=== PATIENT | female | born 1955 | race Caucasian/White ===

== ENCOUNTER 2016-08-29 11:33 | Day surgery (SDC) | payer BC ==
[~2016-08-29 11:33] MED LIST: Bupivacaine 0.5% SDV PF* 30 ML VIAL ONE
[2016-08-29 14:33] VITALS: BP 123/87
--- NOTE | 2016-08-30 04:08 | OP ---
DATE OF OPERATION: 08/29/16 - [facility] DATE OF : 55 SURGEON: Jasvir Ventura MD. NETWORKING SPECIALIST: MICK Arreola. ANESTHESIOLOGIST: None. ANESTHESIA: Local only with digital block via 0.5% Marcaine. PRE-OP DIAGNOSIS: Left small finger mucous cyst. POST-OP DIAGNOSIS: Left small finger mucous cyst. OPERATIVE PROCEDURE: Excision of left small finger mucous cyst and debridement of joint capsule and dorsal osteophytes. INDICATIONS: Lisseth is a 61-year-old woman who has had quite a large mucous cyst on the dorsum of the left small finger over the dorsal ulnar aspect. There is a little bit of grooving in the nail. It has really gotten bigger and she came into the office and wanted it excised. We talked about risks and benefits. She wanted to proceed. ESTIMATED BLOOD LOSS: 5 mL. COMPLICATIONS: None. FINDINGS: As expected. DESCRIPTION OF PROCEDURE: Lisseth was seen in the preoperative holding area and correct side, site, and procedure were identified. We had a time-out and then I anesthetized the finger with 0.5% Marcaine via a digital block. Short time later, we came back to the operating room. The arm was prepped and draped in the usual fashion and formal time-out was performed. I began by exsanguinating the finger and placing the tourniquet via the Tourni- Cot device. I then made an H-shaped incision with the transverse limb centered over the dorsal aspect of the DIP joint. Full thickness flaps were raised off the paratenon. The cyst was encountered immediately and significant ganglion cyst fluid was expressed. The ojeda of the cyst were readily visible and these were excised using the 69 [place] ira blade. The cyst was coming off the window between the collateral ligament and the terminal extensor tendon on the dorsal ulnar aspect of the joint. I went ahead and debrided out the capsule on the dorsal ulnar aspect of the joint. There were some osteophytes there. I nicked these off with a rongeur. I then cleaned out the interval on the dorsal radial aspect of the joint between the terminal extensor tendon and the collateral ligament. The capsule and a little bit of cystic material was excised as well. There again, there were some osteophytes that were excised with the rongeur. She had pretty large osteophytes directly dorsally at the attachment of the terminal extensor tendon. We left these in place. I then had a look at everything. There was a little bit more of tissue that looked like the lining of the cyst on the dorsal ulnar aspect. I excised this. Once I had everything nice and clean, I had her flex and extend the finger. She had full motion. No more cystic fluid was expressed. I, therefore, went ahead and irrigated out the wound. The skin flaps were left back and closed with 5-0 nylon interrupted sutures. The tourniquet was then cut off. The finger pinked up immediately. The wound was dressed with Xeroform, 1-inch Jonathan and a Coban dressing was applied. She was taken to the recovery room in stable condition. [id number]/[facility] #: [id number] JONEL
== END 2016-08-29 14:28 | disposition home or self-care (01) ==
LOC: OREAST 11:33
PROVIDERS: ATTEND Orthopaedic Surgery Hand Surgery
DX: M67.442 Ganglion, left hand (principal); Z79.82 Long term (current) use of aspirin; E78.5 Hyperlipidemia, unspecified; F17.200 Nicotine dependence, unspecified, uncomplicated
CPT/HCPCS: 88304

== ENCOUNTER 2023-10-29 08:44 | Observation (INO) ==
[~2023-10-29 08:44] MED LIST changes: -Bupivacaine 0.5% SDV PF* 30 ML VIAL ONE; +Naloxone 0.4 mg VIAL 0.4 mg/ml 1 ml VIAL IV PRN; +Ondansetron 4 mg VIAL 2 MG/ML 2 ml VIAL IV PRN
[2023-10-29] MEDS ORDERED: fentaNYL 100 mcg/2 ml 50 MCG/ML VIAL ONE ×2 (09:09→13:21)
[2023-10-29] MEDS ORDERED: Rocuronium 50 mg VIAL 10 mg/ml 5 ml VIAL (50 mg) ONE ×2 (09:09→12:21)
[2023-10-29] MEDS ORDERED: Phenylephrine IV 10 MG/ML 1 ml VIAL ONE (09:09)
[2023-10-29] MEDS ORDERED: Midazolam 2 mg/2 ml VIAL 1 mg/ml 2 ml VIAL (2 mg) ONE (09:09)
[2023-10-29] MEDS ORDERED: Propofol 10 MG/ML 20 ML BTL ONE ×2 (09:09→10:36)
[2023-10-29] MEDS ORDERED: Lidocaine 2% PF 5 ML VIAL ONE (09:09)
[2023-10-29] MEDS ORDERED: Ondansetron 4 mg VIAL 2 MG/ML 2 ml VIAL ONE (09:09)
[2023-10-29] MEDS ORDERED: Dexamethasone IV 4 MG/ML VIAL 1 ml VIAL ONE (09:09)
[2023-10-29] MEDS ORDERED: Artificial Tear OPHTH.OINT 3.5 GM ONE (09:10)
[2023-10-29] MEDS ORDERED: Chlorhexidine MOUTHWASH 0.12% 15 ML UDC ONE (09:10)
[2023-10-29] MEDS ORDERED: ceFAZolin 2 GM PREMIX 2 GM/50 ML BAG ONE (09:25)
[2023-10-29 09:36] LABS: Rapid COVID-19 Molecular Undetected (Undetected)
[2023-10-29] MEDS ORDERED: Lidocaine 1% w EPI 1:100,000 MDV 20 ML VIAL ONE (10:41)
[2023-10-29] MEDS ORDERED: Thrombin 5,000 UNITS 1 APPLIC KIT - topical use - TOPICAL ONE (10:42)
[2023-10-29] MEDS ORDERED: ceFAZolin VIAL VIAL ONE (10:43)
[2023-10-29] MEDS ORDERED: HYDROmorphone 0.5 MG/0.5 ML SYRINGE ONE (12:41)
[2023-10-29] MEDS ORDERED: Morphine 2 MG/ML SYRINGE IV PRN (13:06)
[2023-10-29] MEDS ORDERED: Phenol 1.4% Throat Spray BTL MT PRN (13:06)
[2023-10-29] MEDS ORDERED: Calcium Carb (TUMS) 500 mg CHEW TAB PO PRN (13:06)
[2023-10-29] MEDS ORDERED: Ondansetron 4 mg VIAL 2 MG/ML 2 ml VIAL IV PRN (13:06)
[2023-10-29] MEDS ORDERED: Benzocaine/Menthol LOZ MT PRN (13:06)
[2023-10-29] MEDS ORDERED: Magnesium Hydroxide LIQ 30 ML UDC PO PRN (13:06)
[2023-10-29] MEDS ORDERED: Dextran 70/Hypromellose Tears Eye Drops 15 ml BTL (for Artificials Tears) BOTH EYES PRN (13:06)
[2023-10-29] MEDS ORDERED: Senna TAB 8.6 mg TAB PO PRN (13:06)
[2023-10-29] MEDS: fentaNYL 100 mcg/2 ml 50 MCG/ML VIAL IV PRN (13:21)
[2023-10-29] MEDS: Acetaminophen IV 1 GM/100ML 1,000 MG/100 ML BAG IV ONE (15:27)
[2023-10-29] MEDS: Lactated Ringers 1000 ml BAG 1,000 ML IV SCH ×2 (15:28→16:15)
[2023-10-29] MEDS: Buffered Lidocaine 1% SYRIN 1 ml INTRADERM ONE (15:28)
[2023-10-29] MEDS ORDERED: Insulin GLARGINE 100 un/ml 10 ml VIAL SUBCUT SCH (21:00)
[2023-10-30] MEDS: Simvastatin 20 mg TAB (NF) PO SCH (09:49)
[2023-10-30 10:39] VITALS: BP 127/63
== END 2023-10-30 11:30 | disposition home or self-care (01) ==
LOC: SSU 08:44 → OR 08:44
PROVIDERS: ADMIT Neurological Surgery; ATTEND Neurological Surgery